=== PATIENT | female | born 2000 | race Caucasian/White ===

== ENCOUNTER → 2023-10-23 07:58 | Outpatient (REF) | payer OTHER, SELFPAY | LOC: HWRAD 07:58 | PROVIDERS: ATTENDING PHYSICIAN Nurse Practitioner Adult Health; FAMILY PHYSICIAN Nurse Practitioner | DX: R10.2 Pelvic and perineal pain (principal) | CPT/HCPCS: 76830; 76856 ==

== ENCOUNTER → 2024-01-01 15:49 | Outpatient (REF) | payer OTHER, SELFPAY | LOC: RAD 15:49 | PROVIDERS: ATTENDING PHYSICIAN Nurse Practitioner Adult Health; FAMILY PHYSICIAN Nurse Practitioner | DX: N83.209 Unspecified ovarian cyst, unspecified side (principal) | CPT/HCPCS: 76830; 76856 ==

== ENCOUNTER 2024-06-02 18:11 | Emergency (ER) | payer OTHER, SELFPAY ==
[2024-06-02 18:14] VITALS: BP 141/95
[2024-06-02 18:37] LABS: % Basophils 0.5 % (0-2); % Eosinophils 0.8 % (0-6); % Immature Granulocytes 0.2 % (0-0.5); % Lymphocytes 20.1 % (20.5-51.1); % Monocytes 6.3 % (1.7-9.3); % Neutrophils 72.1 % (42.2-75.2); Absolute Eosinophils 0.1 10^3/uL (0-0.7); Absolute Lymphocytes 1.3 10^3/uL (1.2-3.4); Absolute Monocytes 0.4 10^3/uL (0.1-0.6); Absolute Neutrophils 4.8 10^3/uL (1.4-6.5); Hematocrit 38.2 % (37.0-47.0); Hemoglobin 12.8 g/dL (12.0-16.0); Mean Corp Hgb Conc. 33.5 g/dL (33.0-37.0); Mean Corpuscular Hgb 29.8 pg (27.0-31.0); Mean Platelet Volume 10.7 fL (7.4-10.4); Nucleated Red Blood Cells % 0 %; Platelet Count 223 10^3/uL (130-400); Red Blood Cell Count 4.29 10^6/uL (4.20-5.40); Red Cell Dist. Width 12.9 % (11.5-14.5); White Blood Cell Count 6.6 10^3/uL (4.8-10.8)
[2024-06-02 18:51] LABS: HCG, Serum Qualitative Screen Negative
[2024-06-02 18:52] LABS: ALT (SGPT) 24 U/L (0-35); AST (SGOT) 73 U/L (14-36); Albumin 4.7 g/dl (3.5-5.0); Alkaline Phosphatase 56 U/L (38-126); Blood Urea Nitrogen 13 mg/dl (7-17); Calcium 9.7 mg/dl (8.4-10.2); Carbon Dioxide 27 mmol/L (22-30); Chloride 100 mmol/L (98-107); Glucose 92 mg/dl (70-99); Lipase 92 U/L (23-300); Potassium 4.2 mmol/L (3.5-5.1); Sodium 136 mmol/L (135-145); Total Bilirubin 0.2 mg/dl (0.2-1.3); Total Protein 7.4 g/dl (6.3-8.2); eGFR > 60.00
[2024-06-02 18:59] LABS: COVID-19 Antigen Negative (Negative); Urine Albumin Negative (Neg - Trace); Urine Bilirubin Negative (Negative); Urine Character Clear (Clear); Urine Color Yellow; Urine Glucose Negative (Negative); Urine Ketone Negative (Negative); Urine Leukocyte Negative (Negative); Urine Nitrite Negative (Negative); Urine Occult Blood 2+ (Negative); Urine Urobilinogen Negative (Neg - 1+)
--- NOTE | 2024-06-02 19:17 | ED.GENMED ---
History of Present Illness
<QUIQUE Ellison - Last Filed: 06/02/24 23:25>
General
Chief Complaint: Abdominal Pain
Source: patient
Exam Limitations: none
Time Seen by Provider: 06/02/24 18:50
History of Present Illness
History of Present Illness:
This is a 24 year old female that comes in with c/o right sided abd pain. States that last night she started with vomiting and right sided abd pain. States that her body aches, she has a headache and feels dizzy. States that she still has abd pain
on the right side. States that she had something like this when she was in [place]. Denies any fever, chills, chest pain, SOB, nausea, vomiting, diarrhea, urinary burning.
Past History
<QUIQUE Ellison - Last Filed: 06/02/24 23:25>
Past History
ED Past Medical History: GERD and Other (Ovarian cyst, )
ED Past Surgical History: Orthopedic (Knee surgery)
Social History
Tobacco: Non-smoker
Alcohol: Occasional
Personal: Single
Living: with roommate
Review of Systems
<QUIQUE Ellison - Last Filed: 06/02/24 23:25>
Review of Systems
All Other Systems: ROS reviewed and negative except as documented in HPI and ROS
Constitutional: Reports no symptoms; Denies fever or chills
EENT: Reports no symptoms
Respiratory: Reports no symptoms; Denies cough or trouble breathing
Cardiac: Reports no symptoms; Denies chest pain
ABD/GI: Reports abdominal pain; Denies nausea, vomiting or diarrhea
: Reports no symptoms; Denies dysuria, frequency or urgency
Musculoskeletal: Reports no symptoms
Skin: Reports no symptoms
Neurological: Reports dizzy and headache
Psychiatric: Reports no symptoms
Phy Exam
<QUIQUE Ellison - Last Filed: 06/02/24 23:25>
General Physical Exam
General Presentation: well appearing and no apparent distress
General age: appears stated age
General Skin: warm and dry
General Habitus: normal
General Mental: alert
General Hydration: appears well hydrated
ENT Exam
ENT Exam: TM's normal, pharynx normal and neck supple
Eye Exam
Eye Exam: EOMI
Cardiovascular Exam
Cardiovascular Exam: regular rate/rhythm, no edema, no murmur and normal peripheral pulses
Pulmonary Exam
Pulmonary Exam: lungs clear, no respiratory distress, no rales, chest non tender, no crackles, no rhonchi, no wheezing and no cough
Gastrointestinal Exam
Gastrointestinal Exam: normal bowel sounds, soft, no organomegaly, no pulsatile mass, non distended and tender (Right sided abd tenderness with palpation)
Musculoskeletal Exam
Musculoskeletal Exam: full ROM and no edema
Skin Exam
Skin Exam: normal color, warm/dry, no rash and no petechia
Psychiatric Exam
Psychiatric Exam: normal mood/affect
Course
<QUIQUE Ellison - Last Filed: 06/02/24 23:25>
Orders/Labs/Results
Orders:
Orders
06/02/24 18:17
Test Result ONCE
06/02/24 18:23
COVID-19 Antigen Urgent
Source: Nasal Swab
Complete Blood Count/With Diff Urgent
Comprehensive Metabolic Panel Urgent
HCG, Serum Qualitative Screen Urgent
Lipase Urgent
Urinalysis Reflex To Culture Urgent
Date Specimen was Collected: 06/02/24
Time Specimen was Collected: 18:17
Urine Microscopic Reflex Cult Urgent
Influenza A+B Rapid Molecular Urgent
JUANA Source: Nasal Swab
Specimen Description:
Date Specimen was Collected: 06/02/24
Time Specimen was Collected: 18:17
06/02/24 19:16
CT Abd/pel W Iv And Oral Contr Urgent
Comment:
Reason For Exam: Right lower abd pain
Iohexol [Omnipaque] See Protocol PO NOW STA
US Pelvis Only (non-obstetric) Urgent
Comment: History of ovarian cyst
Reason For Exam: Right lower abd pain
06/02/24 19:17
0.9% Sodium Chloride 500 ml [Nss] 500 ml IV BOLUS
06/02/24 20:54
Acetaminophen [Tylenol] 650 mg PO NOW STA
Abnormal Lab Results
06/02/24
18:23
MPV 10.7 H fL
(7.4-10.4)
Lymphocytes % 20.1 L %
(20.5-51.1)
AST 73 H U/L
(14-36)
Ur Occult Blood Reflex 2+ A
(Negative)
Urine RBC 3-6 A /HPF
(0-2)
Urine Bacteria (Reflex) Few A
(Negative)
06/02/24 18:23
06/02/24 18:23
AST mildly elevated. Urine negative for infection, positive for blood (patient has her Menstrual cycle), Lipase normal at 92, HCG negative.
Vital Signs
Initial and Last Documented VS:
Initial Vital Signs
Temp Pulse Resp BP Pulse Ox
98.2 F 56 19 141/95 100
06/02/24 18:14 06/02/24 18:14 06/02/24 18:14 06/02/24 18:14 06/02/24 18:14
Last Documented Vital Signs
Temp Pulse Resp BP Pulse Ox
98.2 F 60 18 124/84 99
06/02/24 18:14 06/02/24 20:48 06/02/24 20:48 06/02/24 20:48 06/02/24 20:48
Deepalt;Avinash Harvey, DO - Last Filed: 06/02/24 20:20>
Orders/Labs/Results
Orders:
Orders
06/02/24 18:17
Test Result ONCE
06/02/24 18:23
COVID-19 Antigen Urgent
Source: Nasal Swab
Complete Blood Count/With Diff Urgent
Comprehensive Metabolic Panel Urgent
HCG, Serum Qualitative Screen Urgent
Lipase Urgent
Urinalysis Reflex To Culture Urgent
Date Specimen was Collected: 06/02/24
Time Specimen was Collected: 18:17
Urine Microscopic Reflex Cult Urgent
Influenza A+B Rapid Molecular Urgent
JUANA Source: Nasal Swab
Specimen Description:
Date Specimen was Collected: 06/02/24
Time Specimen was Collected: 18:17
06/02/24 19:16
CT Abd/pel W Iv And Oral Contr Urgent
Comment:
Reason For Exam: Right lower abd pain
Iohexol [Omnipaque] See Protocol PO NOW STA
US Pelvis Only (non-obstetric) Urgent
Comment: History of ovarian cyst
Reason For Exam: Right lower abd pain
06/02/24 19:17
0.9% Sodium Chloride 500 ml [Nss] 500 ml IV BOLUS
06/02/24 20:54
Acetaminophen [Tylenol] 650 mg PO NOW STA
Abnormal Lab Results
06/02/24
18:23
MPV 10.7 H fL
(7.4-10.4)
Lymphocytes % 20.1 L %
(20.5-51.1)
AST 73 H U/L
(14-36)
Ur Occult Blood Reflex 2+ A
(Negative)
Urine RBC 3-6 A /HPF
(0-2)
Urine Bacteria (Reflex) Few A
(Negative)
06/02/24 18:23
06/02/24 18:23
Vital Signs
Initial and Last Documented VS:
Initial Vital Signs
Temp Pulse Resp BP Pulse Ox
98.2 F 56 19 141/95 100
06/02/24 18:14 06/02/24 18:14 06/02/24 18:14 06/02/24 18:14 06/02/24 18:14
Last Documented Vital Signs
Temp Pulse Resp BP Pulse Ox
98.2 F 60 18 124/84 99
06/02/24 18:14 06/02/24 20:48 06/02/24 20:48 06/02/24 20:48 06/02/24 20:48
<QUIQUE Ellison - Last Filed: 06/02/24 23:25>
MDM/Problems Addressed
Differential Diagnosis Includes:
Ovarian cyst, Appendicitis
MDM/Problems Addressed:
This is a 24 year old female that comes in with c/o right sided abd pain. States that this started yesterday with vomiting and right sided abd pain.
Will check labs. US and CT if US is negative. Will give IV fluids
Back into see patient. Explained that her US and The CT scan is negative. There is no bowel obstruction, her appendix is normal. Patient to follow up with the family doctor. Return with any concerns.
Chronic conditions affecting care:
History of ovarian cyst
Acute Exacerbation and/or Progression of Chronic Illness:
NA
<QUIQUE Ellison - Last Filed: 06/02/24 23:25>
*Radiology
Radiology exam reviewed: radiology read reviewed (US-Negative pelvic ultrasound CT-The appendix appears normal. NO evidence for bowel obstruction or free intraperitoneal air. NO significant bowel wall thickening is identified. No evidence for acute
abnormality of the abdomen or pelvis. )
*Pulse Oximetry
Patient hypoxic: no
*EKG
Interpreted by ED Provider?: NA
Rate: EKG- N/A
*Viscose Department Worker Interpretation
Rate: Viscose Department Worker- N/A
*Critical Care Note
Total Time (30-74mins, 75-104mins- exclusive of procedures): Not Applicable
ED Attending Note
<QUIQUE Ellison - Last Filed: 06/02/24 23:25>
-
Portions of this chart may have been created with voice recognition software.� Occasional wrong word or��sound alike� substitutions may have occurred due to the inherent limitations of voice recognition software.
<Avinash Harvey DO - Last Filed: 06/02/24 20:20>
ED Attending Note
Patient seen and examined by attending physician: Yes
ED Attending Note:
I reviewed and agree with history treatment plan by Kelly Torres. My exam revealed 24-year-old female with mild right lower quadrant abdominal tenderness. No rebound or guarding. Concern for appendicitis versus ovarian cyst. Ultrasound pending,
if negative will check CT abdomen pelvis.
Discharge Plan
Departure
Patient Disposition: Home (Routine Discharge)
Date of Disposition: 06/02/24
Time of Disposition: 23:17
Patient with high blood pressure during this ER visit?: No
Condition: Good
Covid-19: Not Applicable
Discharge Problem:
Right-sided abdominal pain of unknown cause
Instructions: Abdominal Pain
Referrals:
Nurys Pearce CRNP [Family Provider] - Call in 1-3 days for appt
Activity Restrictions/Additional Instructions:
As discussed, your blood work shows that your ALT one of your liver enzymes is slightly elevated. You are negative for COVID and Influenza. Your Ultrasound and CT scan are both negative. Your appendix is normal. Please follow up with the family
doctor for recheck. IF YOU HAVE INCREASED OR CHANGING ABDOMINAL PAIN, OR YOU HAVE ANY OTHER CONCERNS PLEASE RETURN TO THE EMERGENCY ROOM.
Interventions
Interventions:
*Risk Screen - Suicide Last Done: 06/02/24 18:14
*General Assessment Last Done: 06/02/24 18:14
*Neglect/Abuse Screening Last Done: 06/02/24 18:14
*ED COVID-19 Vaccine History Last Done: 06/02/24 18:54
ZP-[id number] Assessment Last Done: 06/02/24 18:54
Discharge Date and Time
Print Language: [id number]
[2024-06-02 19:39] LABS: Urine Bacteria Few (Negative); Urine White Cell 0-2 /HPF (0-5)
[2024-06-02] MEDS: NSS 500 IV (19:43)
[2024-06-02] MEDS: OMNIPAQUE 50 ML PO (20:00)
[2024-06-02 20:48] VITALS: BP 124/84
[2024-06-02] MEDS: TYLENOL 650 MG PO (20:57)
[2024-06-02 23:27] VITALS: BP 120/82
== END 2024-06-02 23:43 | disposition home or self-care (01) ==
LOC: EMR 18:11
PROVIDERS: Registered Nurse; EMERGENCY PHYSICIAN Emergency Medicine; FAMILY PHYSICIAN Nurse Practitioner
DX: R10.9 Unspecified abdominal pain (principal); R11.2 Nausea with vomiting, unspecified; K21.9 Gastro-esophageal reflux disease without esophagitis
CPT/HCPCS: 99284; 96360; 74177; 76856; 80053; 81003; 81015; 83690; 84703; 85025; 87502; 87811; Q9967